=== PATIENT | female | born 1945 | race Caucasian/White ===

== ENCOUNTER → 2019-09-23 | Outpatient (CLI) | payer MEDICARE, BC ==
[~2019-09-23] MED LIST: ACET325T14 PO; BIOT1TAB2 PO; CETI10TA26 PO; FAMO10TA31 PO; MULT-449 PO; PRAM0.5T PO; PROP20TA PO; ZINC30CA PO
[2019-09-23 10:46] LABS: BASOPHILS # (AUTO) 0.02 x10^3/uL (0-0.1); BASOPHILS % (AUTO) 0 % (0-1); EOSINOPHILS % (AUTO) 2 % (1-7); LYMPHOCYTES # (AUTO) 1.62 x10^3/uL (1-3.4); LYMPHOCYTES % (AUTO) 25 % (22-44); MD NO; MEAN CORPUSCULAR HEMOGLOBIN 32.3 pg (27.0-34.8); MEAN CORPUSCULAR HGB CONC 33.3 g/dL (32.4-35.8); MEAN PLATELET VOLUME 7.9 fL (7.4-10.4); MONOCYTES % (AUTO) 9 % (2-9); NEUTROPHILS % (AUTO) 64 % (42-75); PLATELET COUNT 211 x10^3/uL (130-400); RED BLOOD COUNT 4.67 x10^6/uL (3.82-5.3); RED CELL DISTRIBUTION WIDTH 12.4 % (9.6-15.2)
[2019-09-23 10:47] LABS: MICROSCOPIC NOT IND
[2019-09-23 10:55] LABS: ANION GAP 3 mmol/L (5-15); CHLORIDE 110 mmol/L (98-107); CREATININE 0.93 mg/dL (0.55-1.02)
[2019-09-23 11:00] LABS: INTERNATIONAL NORMALIZED RATIO 0.93 (0.93-1.1); PROTHROMBIN TIME 9.9 Seconds (9.6-11.5)
== END | disposition home or self-care (01) ==
LOC: STAR 09:19
PROVIDERS: ATTEND Neurological Surgery
DX: Z01.810 Encounter for preprocedural cardiovascular examination (principal); I51.7 Cardiomegaly; M47.26 Other spondylosis with radiculopathy, lumbar region; M48.061 Spinal stenosis, lumbar region without neurogenic claudication; G95.89 Other specified diseases of spinal cord; M25.78 Osteophyte, vertebrae; R79.1 Abnormal coagulation profile; Z01.812 Encounter for preprocedural laboratory examination; Z01.811 Encounter for preprocedural respiratory examination
CPT/HCPCS: 36415; 71046; 72110; 80048; 81003; 85025; 85610; 85730; 93005

== ENCOUNTER 2019-10-02 05:52 | Day surgery (SDC) | payer MEDICARE, BC ==
[~2019-10-02] VITALS: Ht 162.6 cm; Wt 69.0 kg
[2019-10-02] MEDS ORDERED: CHLORHEXIDINE 15 ML UDC MM STA (06:06)
[2019-10-02] MEDS ORDERED: LACTATED RINGERS 1,000 ML IV SCH (06:06)
[2019-10-02] MEDS ORDERED: BUPIVACAINE/EPI 0.5% 1:200K ONE (06:27)
[2019-10-02] MEDS ORDERED: VANCOMYCIN 1,000 MG ONE ×2 (06:27→09:31)
[2019-10-02] MEDS ORDERED: BUPIVACAINE 0.25% ONE (06:27)
[2019-10-02] MEDS ORDERED: BACITRACIN 50,000 UNIT ONE (06:28)
[2019-10-02] MEDS ORDERED: NEOSTIGMINE 1 MG/ML, 10ML ONE (06:32)
[2019-10-02] MEDS ORDERED: GLYCOPYRROLATE 0.2MG/1ML, 5ML ONE (06:32)
[2019-10-02] MEDS ORDERED: CEFAZOLIN 1,000 MG ONE (06:32)
[2019-10-02] MEDS ORDERED: ROCURONIUM 10MG/ML,5ML ONE (06:32)
[2019-10-02] MEDS ORDERED: FENTANYL PF 100 MCG/2ML ONE ×2 (06:32→07:53)
[2019-10-02] MEDS ORDERED: ONDANSETRON 2MG/ML, 2ML ONE (06:32)
[2019-10-02] MEDS ORDERED: MIDAZOLAM 1 MG/ML, 2ML ONE (06:32)
[2019-10-02] MEDS ORDERED: PROPOFOL 10 MG/ML, 20ML ONE (06:32)
[2019-10-02] MEDS ORDERED: SUCCINYLCHOLINE 20 MG/ML, 10ML ONE (06:32)
[2019-10-02] MEDS ORDERED: DEXAMETHASONE 4 MG/ML, 1ML ONE (06:32)
[2019-10-02] MEDS ORDERED: ACETAMINOPHEN 500 MG TABLET PO ONE (07:00)
[2019-10-02] MEDS ORDERED: GABAPENTIN 300 MG CAPSULE PO ONE (07:00)
[2019-10-02] MEDS ORDERED: SUGAMMADEX 200 MG/2 ML IVPush ONE (07:06)
[2019-10-02] MEDS ORDERED: hydrALAzine 20 MG/ML, 1ML ONE (07:06)
[2019-10-02] MEDS ORDERED: EPHEDRINE 50 MG/ML, 1ML ONE (07:06)
[2019-10-02] MEDS ORDERED: HYDROmorphone 1 MG/ML, 1ML INJ IVPush PRN (07:30)
[2019-10-02] MEDS ORDERED: OXYcodone 5 MG/5 ML ORAL.SOL UDC PO PRN (07:30)
[2019-10-02] MEDS ORDERED: MEPERIDINE/PF 25MG/0.5ML IVPush PRN (07:30)
[2019-10-02] MEDS ORDERED: KETOROLAC 30 MG/1 ML IVPush PRN (07:30)
[2019-10-02] MEDS ORDERED: PROMETHAZINE 25 MG/ML, 1ML IVPush PRN (07:30)
[2019-10-02] MEDS ORDERED: FENTANYL PF 100 MCG/2ML IV PRN (07:30)
[2019-10-02] MEDS ORDERED: BUPIVACAINE/PF 0.25% EPIDPUSH ONE (08:02)
[2019-10-02] MEDS ORDERED: FENTANYL PF 100 MCG/2ML EPIDPUSH ONE (08:03)
[2019-10-02] MEDS ORDERED: BUPIVACAINE LIPOSOME/PF 20ML INFIL ONE (08:30)
[2019-10-02] MEDS ORDERED: PRAMIPEXOLE 0.5MG TABLET PO SCH (16:00)
[2019-10-02] MEDS ORDERED: PROPRANOLOL 20 MG TABLET PO SCH (21:00)
[2019-10-03] MEDS ORDERED: FAMOTIDINE 10 MG TAB PO SCH (09:00)
[2019-10-03] MEDS ORDERED: BIOTIN HOMEMEDPO SCH (09:00)
[2019-10-03] MEDS ORDERED: MULTIVITAMIN 1 TABLET PO SCH (09:00)
[2019-10-03] MEDS ORDERED: ZINC GLUCONATE HOMEMEDPO SCH (09:00)
[2019-10-03] MEDS ORDERED: ZINC PICOLINATE HOMEMEDPO SCH (09:00)
[2019-10-03] MEDS ORDERED: CETIRIZINE 10 MG TABLET PO SCH (09:00)
== END 2019-10-02 11:00 | disposition home or self-care (01) ==
LOC: OUT 05:52
PROVIDERS: ATTEND Neurological Surgery
DX: M48.062 Spinal stenosis, lumbar region with neurogenic claudication (principal); Z11.59 Encounter for screening for other viral diseases; M96.820 Accidental puncture and laceration of a musculoskeletal structure during a musculoskeletal system procedure; M51.16 Intervertebral disc disorders with radiculopathy, lumbar region; J45.909 Unspecified asthma, uncomplicated; K58.9 Irritable bowel syndrome, unspecified; K21.9 Gastro-esophageal reflux disease without esophagitis; Z79.899 Other long term (current) drug therapy; Z85.3 Personal history of malignant neoplasm of breast; Z88.0 Allergy status to penicillin; Z88.7 Allergy status to serum and vaccine; Z90.13 Acquired absence of bilateral breasts and nipples; Y83.8 Other surgical procedures as the cause of abnormal reaction of the patient, or of later complication, without mention of misadventure at the time of the procedure
CPT/HCPCS: 36415; 63030; 63035; 72100; 87635; C1781; C9290; J0330; J0360; J0690; J1100; J2250; J2405; J2704; J2710; J3010; J3370; J3490; J7120